=== PATIENT | male | born 1985 | race African-American/Black ===

== ENCOUNTER 2017-12-07 14:49 | Emergency (ER) | payer SELFPAY ==
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
== END 2017-12-07 16:17 | disposition home or self-care (01) ==
LOC: JD.ED 14:49
DX: R10.9 Unspecified abdominal pain (principal); F17.210 Nicotine dependence, cigarettes, uncomplicated
CPT/HCPCS: 99282; 99284

== ENCOUNTER 2018-05-07 13:44 | Emergency (ER) | payer SELFPAY ==
[2018-05-07] MEDS ORDERED: Acetaminophen/HYDROcodone 325-5 MG Tab PO ONE (14:29)
[2018-05-07] MEDS ORDERED: Amoxicillin 500 MG Cap PO ONE (14:29)
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
== END 2018-05-07 14:45 | disposition home or self-care (01) ==
LOC: JD.ED 13:44
DX: K08.89 Other specified disorders of teeth and supporting structures (principal); F17.210 Nicotine dependence, cigarettes, uncomplicated
CPT/HCPCS: 99283; A9270

== ENCOUNTER 2018-08-19 16:55 | Emergency (ER) | payer SELFPAY ==
[2018-08-19] MEDS ORDERED: Ketorolac 60 MG/2 ML SDV IM ONE (18:25)
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
--- NOTE | 2018-08-21 11:17 | CR ---
Chest and right ribs: Frontal view of the chest was obtained as well as three views of the right ribs. Comparison: No prior chest imaging. Slight parenchymal density within the left mid to lower lung is seen felt to represent scarring/pleural thickening from old disease. Several granulomas are noted within the left base. Lungs otherwise are clear. Minimal scoliosis is noted within the spine. No acute right-sided rib abnormality is appreciated. Impression: 1. Findings within the left mid and lower lung believed to be chronic. 2. Other incidental findings. Nothing acute is suspected. No discrete right-sided rib abnormality is appreciated. Diagnostic code #2
== END 2018-08-19 19:33 | disposition home or self-care (01) ==
LOC: JD.ED 16:55
DX: R07.81 Pleurodynia (principal); F17.210 Nicotine dependence, cigarettes, uncomplicated
CPT/HCPCS: 71101; 96372; 99283; J1885

== ENCOUNTER 2019-01-17 17:49 | Emergency (ER) | payer SELFPAY ==
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
--- NOTE | 2019-01-18 08:30 | CR ---
Right hand: Four views of the right hand were obtained. Comparison: No prior hand exam. Slightly comminuted and mildly angulated fracture is identified within the base of the right fifth metacarpal. Soft tissue swelling is noted. No additional fracture or other abnormality is appreciated. Impression: 1. Fifth metacarpal fracture as noted above. 2. Soft tissue swelling. Diagnostic code #3
== END 2019-01-17 19:45 | disposition home or self-care (01) ==
LOC: JD.ED 17:49
DX: S62.316A Displaced fracture of base of fifth metacarpal bone, right hand, initial encounter for closed fracture (principal); F17.210 Nicotine dependence, cigarettes, uncomplicated; W00.0XXA Fall on same level due to ice and snow, initial encounter
CPT/HCPCS: 29125; 73130-26-RT; 73130-RT; 99283; 99283-25

== ENCOUNTER 2020-08-02 20:22 | Emergency (ER) | payer SELFPAY ==
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
--- NOTE | 2020-08-02 21:23 | CT ---
Head CT Technique: Multiple axial sections through the brain were obtained. Intravenous contrast was not utilized. Findings: Ventricles along with basal cisterns and sulci over the convexities are mildly prominent for the patient's age. Small old infarct appears to be present within the posterior right parietal region. No other abnormal parenchymal densities are seen. No evidence of intracranial hemorrhage. No midline shift or mass-effect is appreciated. Bone window settings were reviewed. No acute calvarial finding is seen. Visualized mastoid and visualized paranasal sinuses show nothing acute. Impression: 1. Generalized atrophy which is more prominent than usually seen in a patient of this age. This can be related to substance abuse, prior trauma as well as some seizure medications. 2. 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 3. No acute intracranial abnormality is appreciated. Note: Please correlate if patient's symptoms warrant further evaluation by MRI. Diagnostic code #3 This report was dictated in MDT
[2020-08-02] MEDS ORDERED: Aspirin 81 MG Tab.Chew PO ONE (22:10)
== END 2020-08-02 22:37 | disposition home or self-care (01) ==
LOC: JD.ED 20:22
DX: G58.8 Other specified mononeuropathies (principal); F17.210 Nicotine dependence, cigarettes, uncomplicated; Z79.82 Long term (current) use of aspirin; Z79.899 Other long term (current) drug therapy; Z91.030 Bee allergy status
CPT/HCPCS: 36415; 70450; 80053; 84484; 85025; 85610; 85730; 99284; A9270; 99282